=== PATIENT | male | born 1995 | race African-American/Black ===

== ENCOUNTER 2016-11-23 13:04 | Emergency (ER) | payer MEDICAID ==
[~2016-11-23] VITALS: Ht 177.8 cm; Wt 59.0 kg
--- NOTE | 2016-11-23 13:38 | Emergency Room Report ---
History of Present Illness General Chief Complaint: Upper Extremity Injury Source: Patient Present Illness HPI 21-year-old male presents to the emergency department complaining of 8/10 in severity pain and deformity to the left shoulder and left shoulder blade times one day. Patient status post mechanical fall off his skateboard yesterday landing on the left shoulder. Patient reports limited range of motion and pain is exacerbated with range of motion in the left arm. he also reports multiple abrasions on the bilateral wrists and in her left elbow. he denies pain in the left elbow. he states he is up-to-date with tetanus vaccinations. Patient denies hitting his head or loss of consciousness. Denies numbness tingling or loss of sensation or gross motor movements of the extremities, incontinence of bowel or bladder. Denies CP, Palpitations, LOC, AMS, dizziness, Changes in Vision, Sensation, paresthesias, or a sudden severe headache. Allergies: Coded Allergies: No Known Allergies (Unverified , 11/23/16) Patient History Past Medical History: see triage record Past Surgical History: none Pertinent Family History: none Immunizations: UTD Reviewed Nursing Documentation: PMH: Agreed, PSxH: Agreed Nursing Documentation-PMH Past Medical History: No Stated History Review of Systems All Other Systems: negative except mentioned in HPI Physical Exam Vital Signs Date Time Temp Pulse Resp B/P Pulse Ox O2 Delivery O2 Flow Rate FiO2 11/23/16 13:19 98.4 70 18 150/86 98 Room Air Sp02 EP Interpretation: reviewed, normal General Appearance: no apparent distress, alert, GCS 15, non-toxic Head: normocephalic, atraumatic Eyes: bilateral eye PERRL, bilateral eye normal inspection ENT: hearing grossly normal, normal pharynx, no angioedema, normal voice Neck: full range of motion, supple/symm/no masses Respiratory: chest non-tender, lungs clear, normal breath sounds, speaking full sentences Cardiovascular #1: regular rate, rhythm, no edema Cardiovascular #2: 2+ radial (R), 2+ radial (L) Gastrointestinal: non tender, soft, no guarding, no rebound Rectal: deferred Genitourinary: normal inspection, no CVA tenderness Musculoskeletal: back normal, gait/station normal, normal range of motion, other - obvious deformity noted with high riding left scapula, tender - TTP to anterior right shoulder, and posterior scapula, limited ROM due to pain Neurologic: alert, oriented x3, responsive, motor strength/tone normal, sensory intact, speech normal Psychiatric: judgement/insight normal, memory normal, mood/affect normal Skin: normal color, no rash, warm/dry, well hydrated, abrasions - multiple abrasions: bilateral wrists/palms, and medial left elbow. Medical Decision Making PA Attestation Dr. Whitten is my supervising Physician whom patient management has been discussed with. Diagnostic Impression: Primary Impression: Shoulder pain, acute Qualified Codes: M25.512 - Pain in left shoulder Additional Impressions: Abrasions of multiple sites Rotator cuff injury Qualified Codes: S46.002A - Unspecified injury of muscle(s) and tendon(s) of the rotator cuff of left shoulder, initial encounter ER Course 21-year-old male presents to the emergency department complaining of 8/10 in severity pain and deformity to the left shoulder and left shoulder blade times one day. Patient status post mechanical fall off his skateboard yesterday landing on the left shoulder. Patient reports limited range of motion and pain is exacerbated with range of motion in the left arm. he also reports multiple abrasions on the bilateral wrists and in her left elbow. he denies pain in the left elbow. he states he is up-to-date with tetanus vaccinations. Patient denies hitting his head or loss of consciousness. Denies numbness tingling or loss of sensation or gross motor movements of the extremities, incontinence of bowel or bladder. Denies CP, Palpitations, LOC, AMS, dizziness, Changes in Vision, Sensation, paresthesias, or a sudden severe headache. Ddx considered but are not limited to Fracture, dislocation, contusion, Sprain/ Strain/Spasm. Vital signs: are WNL, pt. is afebrile H&PE are most consistent with musculoskeletal injury will perform imaging to r/ o fractures/dislocations. - This pt. was also examined by Dr. Aldana who states PE shoulder blade deformity is winged scapula and most consistent with rotator cuff injury vs. nerve injury. ORDERS: - X-ray Left Shoulder - negative for fx, Dislocation, or significant soft tissue injury, per preliminary read in ED by Dr. Aldana - interpretation is scribed by PA. - X-ray Left Scapula - negative for fx, Dislocation, or significant soft tissue injury, per preliminary read in ED by Dr. Aldana - interpretation is scribed by PA. ED INTERVENTIONS: - [place] PO -- Left arm Sling applied by camera repair technician. Pt. remains neurovascularly intact. -d/w pt that he will require MRI diagnostic imaging as an outpatient and follow up with chargeback specialist. d/w pt. to follow up with PCP for proper referrals. to return to ED with any worsening or new symptoms. DISCHARGE: At this time pt. is stable for d/c to home. Will provide printed patient care instructions, and any necessary prescriptions. Care plan and follow up instructions have been discussed with the patient prior to discharge. Last Vital Signs Date Time Temp Pulse Resp B/P Pulse Ox O2 Delivery O2 Flow Rate FiO2 11/23/16 13:19 98.4 70 18 150/86 98 Room Air Disposition: HOME, SELF-CARE Condition: Stable Scripts Hydrocodone Bit/Acetaminophen 5-325* (NORCO 5-325*) 1 Each Tablet 1 TAB ORAL Q6H Y for For Pain, #6 TAB 0 Refills Prov: Shilpa Diaz.Abhinav 11/23/16 Ibuprofen* (MOTRIN*) 600 Mg Tablet 600 MG ORAL THREE TIMES A DAY, #30 TAB 0 Refills Prov: Shilpa Diaz P.AArlene 11/23/16 Bacitracin/Polymyxin B Sulfate (BACITRACIN-POLYMYXIN OINTMENT) 28.35 Gm Oint...g. 1 APPLIC TP BID, #28.3 GM Prov: Shilpa Diaz.A. 11/23/16 Referrals: NOT CHOSEN IPA/MD,REFERRING (PCP) Patient Instructions: Abrasion, [id number], Rotator Cuff Injury Additional Instructions: Take medications as directed. Follow up with [facility] , MRI will most likely be required. Follow up with a Primary Care Provider in 3-5 days, even if your symptoms have resolved. --Please review list of primary care clinics, if you do not already have a primary care provider Return sooner to ED if new symptoms occur, or current symptoms become worse. rink alcohol, drive, or operate heavy machinery while taking [place] as this may cause drowsiness. - Please note that this Emergency Department Report was dictated using [employer] technology software, occasionally this can lead to erroneous entry secondary to interpretation by the dictation equipment. - Please note that this Emergency Department Report was dictated using [employer] technology software, occasionally this can lead to erroneous entry secondary to interpretation by the dictation equipment. Shilpa Diaz Nov 23, 2016 13:38
[2016-11-23] MEDS ORDERED: Bacitracin Oint UD TOPIC ONE ×2 (13:43→14:15)
[2016-11-23] MEDS ORDERED: Norco 5mg/325mg tab ORAL ONE (13:45)
[2016-11-23 13:56] VITALS: BP 150/86
[2016-11-23] MEDS ORDERED: NORCO 5-325 TA1 EACH ORAL (14:41)
[2016-11-23] MEDS ORDERED: IBUPROFEN600 MG ORAL (14:41)
[2016-11-23] MEDS ORDERED: BACITRACIN-P28.35 GM TP (14:41)
[2016-11-23 14:45] VITALS: BP 148/82
[2016-11-23 15:01] VITALS: BP 148/82
--- NOTE | 2016-11-23 15:24 | Diagnostic Imaging Report ---
Indication: Pain Findings: 3 views of the left shoulder were obtained. Alignment of the left shoulder is normal. No acute fracture is identified. Soft tissues are unremarkable. Impression: Negative left shoulder examination
== END 2016-11-23 15:01 | disposition home or self-care (01) ==
LOC: EMR 13:33
DX: S46.002A Unspecified injury of muscle(s) and tendon(s) of the rotator cuff of left shoulder, initial encounter (principal); M25.512 Pain in left shoulder; S60.812A Abrasion of left wrist, initial encounter; S60.811A Abrasion of right wrist, initial encounter; S60.512A Abrasion of left hand, initial encounter; S60.511A Abrasion of right hand, initial encounter; S50.312A Abrasion of left elbow, initial encounter; V00.131A Fall from skateboard, initial encounter; Y93.51 Activity, roller skating (inline) and skateboarding; Y92.9 Unspecified place or not applicable
CPT/HCPCS: 29240; 99284